=== PATIENT | male | born 1945 | race Caucasian/White ===

== ENCOUNTER → 2017-02-06 | Outpatient (CLI) | payer OTHER, MEDICARE | LOC: FIMAGING 10:09 | PROVIDERS: ATTEND Internal Medicine Interventional Cardiology | DX: I65.23 Occlusion and stenosis of bilateral carotid arteries (principal); I25.10 Atherosclerotic heart disease of native coronary artery without angina pectoris ==

== ENCOUNTER 2018-03-23 07:15 | Observation (INO) | payer OTHER, MEDICARE ==
[2018-03-23] MEDS ORDERED: BACITRACIN IRRIGATION/NS 50,000 UNITS/1,000 ML BTL IRR ONE (07:17)
[2018-03-23] MEDS ORDERED: NS 1,000 ML IV ONE (07:17)
[2018-03-23] MEDS ORDERED: ceFAZolin 2 GM/SWFI 2 GM/20 ML SYR IVP ONE (07:17)
[2018-03-23] MEDS ORDERED: diphenhydrAMINE 25 MG CAP PO ONE (07:17)
--- NOTE | 2018-03-23 07:41 | CPEKG ---
Heart Rate: 85 RR Interval: 706 P-R Interval: 240 QRSD Interval: 144 QT Interval: 428 QTC Interval: 509 P Phoenix: 30 QRS Phoenix: 8 T Wave Phoenix: -2 EKG Severity - ABNORMAL ECG - EKG Impression: SINUS RHYTHM EKG Impression: FIRST DEGREE AV BLOCK EKG Impression: query right ventricular hypertrophy EKG Impression: RIGHT BUNDLE BRANCH BLOCK Electronically Signed By: Michael Muniz 23-Mar-2018 09:43:09
[2018-03-23] MEDS ORDERED: LIDOCAINE 1% 300 MG/30 ML SDV ONE (08:06)
[2018-03-23] MEDS ORDERED: HEPARIN 10,000 UNIT/10 ML MDV (1,000 UNIT/ML) ONE (08:06)
[2018-03-23] MEDS ORDERED: BUPIVACAINE 0.5% 30 ML SDV ONE (08:06)
[2018-03-23 08:07] LABS: PLATELET COUNT 220 10^3/uL (150-400)
[2018-03-23] MEDS ORDERED: ISOPROTERENOL HCL/D5W 0.2 MG/50 ML BAG IV ONE (08:07)
[2018-03-23 08:11] LABS: INR 0.93 (0.83-1.16); PROTIME(PATIENT) 12.7 SEC (12.0-15.0)
--- NOTE | 2018-03-23 08:22 | PDGENHP ---
History & Physical Chief Complaint: fatigue History of Present Illness: AFF Relevant Physical Exam: s1s2 irreg. cta. ao3 Cardiorespiratory Assessment: AFL with V pauses. Fatigue. For AFL ablation. Possible pacemaker if slow AV conduction post ablation
[2018-03-23] MEDS ORDERED: MIDAZOLAM 2 MG/2 ML VIAL IVP ONE (08:32)
--- NOTE | 2018-03-23 08:33 | PDANEPAE ---
ANE History of Present Illness a fib, cad, s/p cabg ANE Past Medical History - Cardiovascular History Hx Hypertension: Yes Hx Arrhythmias: Yes Hx Coronary Artery / Peripheral Vascular Disease: Yes - Pulmonary History Hx Oxygen in Use at Home: Yes Hx Sleep Apnea: Yes - Endocrine History Hx Diabetes: No - Chronic Pain History Chronic Pain: Yes ANE Review of Systems Review of Systems: ANE Patient History - Allergies Allergies/Adverse Reactions: No Known Allergies Allergy (Unverified 10/17/15 08:51) - Home Medications Home Medications: Aspirin [Aspirin 81mg (*)] 81 mg PO HS 10/17/15 [Last Taken Unknown] Latanoprost 0.005% [Xalatan 0.005% (*)] 1 drop OP HS 10/17/15 [Last Taken Unknown] Lisinopril [Zestril 40 mg (*)] 40 mg PO DAILY 10/17/15 [Last Taken Unknown] Nebivolol HCl [Bystolic 5 mg (*)] 2.5 mg PO DAILY 10/17/15 [Last Taken Unknown] amLODIPine BESYLATE [Norvasc 5 mg (*)] 5 mg PO DAILY 10/17/15 [Last Taken Unknown] Acetaminophen [Tylenol 325mg (*)] 325 mg PO DAILY PRN 03/16/18 [Last Taken Unknown] Apixaban [Eliquis] 5 mg PO BID 03/16/18 [Last Taken Unknown] Herbals/Supplements -Info Only 1 ea PO DAILY 03/16/18 [Last Taken Unknown] Multivitamins [Multivitamin (*)] 1 each PO DAILY 03/16/18 [Last Taken Unknown] [place]-3 Fatty Acids [Fish Oil 1000 mg (*)] 2,000 mg PO DAILY 03/16/18 [Last Taken Unknown] Rosuvastatin Calcium [Crestor 40mg (*)] 40 mg PO DAILY 03/16/18 [Last Taken Unknown] - Smoking Hx Smoking Status: Former smoker ANE Labs/Vital Signs - Labs Result Diagrams: 03/23/18 07:40 03/23/18 07:40 - Vital Signs Height: 175.26 cm Weight: 102.058 kg ANE Physical Exam - Airway Neck exam: FROM Mallampati Score: Class 3 Mouth exam: poor dentition, dentures - Pulmonary Pulmonary: no respiratory distress - Cardiovascular Cardiovascular: irregularly irregular - ASA Status ASA Status: III ANE Anesthesia Plan Anesthesia Plan: general endotracheal anesthesia
[2018-03-23] MEDS ORDERED: fentaNYL 100 MCG/2 ML INJ ONE ×2 (08:36→08:37)
[2018-03-23] MEDS ORDERED: PHENYLEPHRINE HCL 100 MCG/ML SYR ONE (08:36)
[2018-03-23] MEDS ORDERED: ROCURONIUM 100 MG/10 ML VIAL ONE (08:36)
[2018-03-23] MEDS ORDERED: PROPOFOL 200 MG/20 ML VIAL ONE ×2 (08:37→09:50)
[2018-03-23] MEDS ORDERED: HEPARIN/DEXTROSE 25,000 UNIT/500 ML BAG ONE (09:47)
[2018-03-23] MEDS ORDERED: PHENYLEPHRINE HCL 50 MG in NS 250 ML IV SCH (10:00)
--- NOTE | 2018-03-23 10:59 | EPPROC ---
Electrophysiology Procedure Note: ELECTROPHYSIOLOGIC STUDY AND CATHETER MEDIATED ABLATION FOR SUBEUSTACHIAN ISTHMUS DEPENDENT COUNTERCLOCKWISE ATRIAL FLUTTER: INDICATION: Recurrent atrial flutter Prior CABG Symptomatic with atrial flutter. Unable to use antiarrhythmics due to 3.6 s pauses on monitoring. PROCEDURES PERFORMED: 71823-18 EP evaluation with RA/RV/LA pace/record, with arrhythmia induction 53306-91 EP evaluation with RA/RV pace record, insert/reposition catheter, with arrhythmia induction 97219 SVT ablation 51205 3D mapping Fluoroscopy Catheters & Anesthesia: The patient arrived in the Electrophysiology Laboratory in the fasting state. The right clavicular region, right groin, and left groin area were prepped and draped in the usual sterile manner. Anesthesiologist Dr. Tony Ortiz administered general anesthesia. Appropriate non-invasive blood pressure, pulse oximetry and end-tidal CO2 monitoring was established. All catheters were placed percutaneously using the modified Seldinger technique , and advanced into position under fluoroscopic guidance. One #7 [place]i deflectable octapolar electrode catheter was advanced to the His-bundle position via the left femoral vein (2mm spacing; except the proximal ring which was 25cm from the tip used for unipolar recordings). One #7 [place]i deflectable catheter with 10 pairs of electrodes was placed via the left femoral vein into the coronary sinus. One # 7 [place]i Halo catheter was inserted through the right femoral vein and was placed at the tricuspid annulus. Heparin was administered to keep ACT > 250 seconds. Programmed stimulation was performed from the right atrium, coronary sinus ( left atrium) and right ventricle. On arrival to the Electrophysiology Laboratory the patient was in atrial flutter , CL 240 ms. Entrainment mapping from lateral TA, septal TA, proximal CS and distal CS confirmed cavotricuspid isthmus dependent atrial flutter. In preparation for ablation of typical atrial flutter, a high-resolution 3D (3 dimensional) Carto electroanatomical map of the sub-Eustachian isthmus and right atrium was obtained during pacing of the posterolateral coronary sinus. For ablation of typical atrial flutter, one #8.5 [place]i ramp1 sheath was placed in the right atrium. A #8 [place]raini deflectable quadrapolar electrode catheter ( 2mm-5mm-2mm spacing) with 3.5 mm irrigated tip electrode and location sensor for the OneName mapping system was inserted in the long sheath and advanced to the right atrium. Radiofrequency applications were applied between the tricuspid annulus at 0630 oclock as seen in the BRITISH view and the inferior vena cava. This achieved conduction block across the isthmus. Septal to lateral conduction time 220 ms. Following ablation of the atrial flutter, programmed atrial stimulation was performed in the baseline state. No atrial arrhythmias were inducible post ablation. Post ablation, a high-resolution electroanatomical map of the sub-Eustachian isthmus was obtained during pacing of the posterolateral coronary sinus. This confirmed conduction block across the sub-Eustachian isthmus. Bidirectional block was also confirmed by pacing. The catheters were removed. Sheaths were removed in the EP lab after applying subcutaneous purse string suture. The patient was transferred to the cardiovascular holding area in stable condition. There were no apparent complications. Post ablation: SCL 1017 ms AH 150 ms HV 60 ms (RBBB) AV WBB @ 640 ms We decided not to place pacemaker at this time. Patient will be monitored for 4 weeks post ablation and if pauses seen, will move forward with pacemaker at that time. CONCLUSIONS: 1. 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 2. Successful catheter mediated ablation of cavotricuspid isthmus achieving bi -directional conduction block across cavotricuspid isthmus. 3. No atrial arrhythmias inducible post ablation. 4. Infrahisian conduction system disease with RBBB and HV interval 60 ms, AV nancy WBB at 640 ms. 5. No apparent complications. Patient Problems: Problems Problem Status Onset Atrial flutter Acute
[2018-03-23] MEDS ORDERED: ACETAMINOPHEN 325 MG TAB PO PRN (11:00)
[2018-03-23] MEDS ORDERED: NALOXONE HCL 0.4 MG/ML INJ IVP PRN (11:11)
--- NOTE | 2018-03-23 11:11 | POSTANESTH ---
Post Anesthetic Evaluation Cardiovascular Status: Normal, Stable Respiratory Status: Normal, Stable Level of Consciousness/Mental Status: Can Participate in Eval Pain Control: Adequate, Prn Tx Ordered Nausea/Vomiting Control: Adequate, Prn Tx Ordered Complications Possibly Related to Anesthesia: None Noted
--- NOTE | 2018-03-23 12:01 | CPEKG ---
Heart Rate: 71 RR Interval: 845 P-R Interval: 296 QRSD Interval: 142 QT Interval: 468 QTC Interval: 509 P Adams: 53 QRS Adams: 32 T Wave Adams: 24 EKG Severity - ABNORMAL ECG - EKG Impression: SINUS RHYTHM EKG Impression: FIRST DEGREE AV BLOCK EKG Impression: RIGHT BUNDLE BRANCH BLOCK EKG Impression: BORDERLINE INFERIOR Q WAVES Electronically Signed By: Bro Weeks 23-Mar-2018 12:50:50
[2018-03-23] MEDS ORDERED: LATANOPROST 0.005% 2.5 ML OPHT DROPS OP SCH (21:00)
[2018-03-23] MEDS ORDERED: ASPIRIN 81 MG CHEWABLE TAB PO SCH (21:00)
[2018-03-23] MEDS: APIXABAN 5 MG TAB PO SCH (21:07)
[2018-03-24] MEDS ORDERED: OXYMETAZOLINE 30 ML NASAL SPRAY EACHNARE PRN (04:45)
[2018-03-24 05:00] LABS: PLATELET COUNT 213 10^3/uL (150-400)
[2018-03-24 08:19] VITALS: BP 122/67
--- NOTE | 2018-03-24 08:47 | CPEKG ---
Heart Rate: 77 RR Interval: 779 P-R Interval: 268 QRSD Interval: 140 QT Interval: 436 QTC Interval: 494 P Ellinger: 64 QRS Ellinger: 8 T Wave Ellinger: 15 EKG Severity - ABNORMAL ECG - EKG Impression: SINUS RHYTHM EKG Impression: SUPRAVENTRICULAR BIGEMINY EKG Impression: FIRST DEGREE AV BLOCK EKG Impression: RIGHT BUNDLE BRANCH BLOCK Electronically Signed By: Bro Weeks 24-Mar-2018 16:25:39
[2018-03-24] MEDS ORDERED: CETIRIZINE 10 MG TAB PO SCH (09:00)
[2018-03-24] MEDS ORDERED: amLODIPine BESYLATE 5 MG TAB PO SCH (09:00)
[2018-03-24] MEDS ORDERED: NEBIVOLOL HCL 5 MG TAB PO SCH (09:00)
[2018-03-24] MEDS ORDERED: ROSUVASTATIN CALCIUM 40 MG TAB PO SCH (09:00)
[2018-03-24] MEDS ORDERED: MULTIVITAMINS 1 EACH TAB PO SCH (09:00)
[2018-03-24] MEDS ORDERED: LISINOPRIL 40 MG TAB PO SCH (09:00)
--- NOTE | 2018-03-24 09:14 | ECHO ---
[email or web address] [address] [address] Main: [phone] Fax: Transthoracic Echocardiogram Name: MARIALUISA SCOTT MR#: [id number] Study Date: 03/24/2018 Study Time: 05:31 AM Date of : 1945 Age: 72 year(s) Height: 175.3 cm (69 in.) Weight: 102.06 kg (225 lb.) BSA: 2.17 m2 Gender: Male Examination: Echo Indication: F/U POST EP STUDY Image Quality: Contrast: Requested by: Bro Weeks BP: 132 mmHg/78 mmHg Heart Rate: Rhythm: Indication: F/U POST EP STUDY Procedure Staff Leaf Conditioner Helper: Elena De La Fuente RDCS Reading Physician: Bro Weeks MD Requesting Provider: Conclusions: Normal global systolic LV function. EF is 55 %. Mild to moderate mitral regurgitation. Aortic sclerosis is present. Mild tricuspid regurgitation is present. Right ventricular systolic pressure measures 41mmHg. The pulmonary artery pressure is mildly increased. Measurements: Chambers Valvular Assessment AV/MV Valvular Assessment TV/PV Normal Normal Normal Name Value Range Name Value Range Name Value Range Ao Estephanie (2D): 3.0 cm (1.4 cm-2.6 AV meanP mmHg ( - ) TR Vmax: 3.01 mm/s ( - ) cm) ALEKSANDER (VTI): 2.1 cm ( - ) TR PGmax: 36 mmHg ( - ) IVSd (2D): 1.1 cm (0.6 cm-1.1 MV E Vmax: 0.96 m/s ( - ) syst. PAP: 41 mmHg ( - ) cm) MV A Vmax: 0.74 m/s ( - ) PV Vmax: 1.13 m/s (0.6 m/s-0.9 LVDd (2D): 5.8 cm (4.2 cm-5.9 MV E/A: 1.30 ( - ) m/s) cm) MV PHT: 0.045 s ( - ) PV PGmax: 5 mmHg ( - ) LVDs (2D): 4.0 cm (2.1 cm-4 cm) MVA (PHT): 4.9 s ( - ) LVPWd (2D): 1.1 cm (0.6 cm-1 cm) LVOTd 2.2 cm 2.2 cm mm LVEF (BP): 55 % (>=55 %) RVDd(2D): 4.0 cm (1.9 cm-3.8 cmmm) Continued Measurements: Chambers Valvular Assessment AV/MV Valvular Assessment TV/PV Patient: MARIALUISA SCOTT Study Date: 03/24/2018 Page 1 of 2 05:31 AM Name Value Name Value Name Value LADs: 5.1 cm MV DecTime: 162 m/s CVP (est.): 5 mmHg LADs Lon.4 cm MV E' Septal: 0.07 m/s LA Area: 26.1 cm2 MV E/E' Septal: 13.40 LA Volume: 82 ml MV E/E' Lateral: 9.00 LA Volume Index: 37.8 ml/m2 MR ERO: 0.410 cm2 RA Area: 19.3 cm2 MR PISA radius: 9 mm MR Reg. Volume: 61 ml Additional Vessels Name Value Ao Ascendin.0 cm Inferior Vena Cava: 1.4 cm Findings: Left Ventricle: Normal size left ventricle. No LV hypertrophy. Normal global systolic LV function. EF is 55 %. No regional wall motion abnormality. Normal diastolic LV function. Right Ventricle: Normal size right ventricle. Normal RV function. Left Atrium: Left atrial enlargement. Right Atrium: The right atrium is normal in size. Mitral Valve: The mitral valve is normal in appearance and function. Mild to moderate mitral regurgitation. No mitral stenosis is present. Aortic Valve: The aortic valve is normal in appearance and function. Aortic sclerosis is present. There is no significant aortic valve regurgitation. No aortic valve stenosis is present. Tricuspid Valve: The tricuspid valve is normal in appearance and function. Mild tricuspid regurgitation is present. Right ventricular systolic pressure measures 41mmHg. The pulmonary artery pressure is mildly increased. Pulmonic Valve: The pulmonic valve is normal in appearance and function. Trivial pulmonic valve regurgitation. Aorta: The aorta is normal. Normal size aortic root measuring 3.0 cm. Normal size ascending aorta measuring 3.0 cm. IVC: The IVC is normal sized. Pericardium: No pericardial effusion. No pleural effusion. (No Signature Object) Patient: MARIALUISA SCOTT Study Date: 03/24/2018 Page 2 of 2 05:31 AM [id number]
[2018-03-24] MEDS: APIXABAN 5 MG TAB PO SCH (09:18)
--- NOTE | 2018-03-24 12:57 | GDS ---
[f rep st] DISCHARGE SUMMARY ADMISSION DIAGNOSIS: 1. Atrial flutter. 2. Coronary artery disease. 3. Hyperlipidemia. 4. Hypertension. 5. Obstructive sleep apnea. 6. Pulmonary artery hypertension. DISCHARGE DIAGNOSIS: 1. Atrial flutter. 2. Status post atrial flutter ablation. 3. Coronary artery disease. 4. Hyperlipidemia. 5. Hypertension. 6. Obstructive sleep apnea. 7. Pulmonary hypertension. 8. Sinusitis. 9. Bifascicular block. PROCEDURES PERFORMED DURING HOSPITALIZATION: 1. Electrocardiogram. 2. Electrophysiology study. 3. Successful catheter mediated ablation of cavotricuspid isthmus achieving bidirectional conduction block across the cavotricuspid isthmus. 4. Echocardiogram. BRIEF HISTORY: Please see H and P. Briefly, Mr. Mcmillan is a 72-year-old male whose primary cardiol ogist is Dr. Jay Matias. Patient has been noted he has a significant past history of CAD, hyperlipid emia and hypertension. He was found recently to be in atrial flutter with variable ventricular respo nse. It was noted when in flutter he was having ventricular pauses up to 3.6 seconds. He has had no syncope. He does report fatigue when in flutter. He met with Dr. Weeks, and it was felt the best way to proceed was to undergo electrophysiology study with ablation. HOSPITAL COURSE: Patient admitted through CVC, prepped for procedure, and taken to the cardiac jolie terization lift where Dr. Weeks performed electrophysiology study on patient, identifying cavotricuspid isthmus dependent counterclockwise atrial flutter. At that point, he ablated it and was not able to produce any arrhythmias post ablation. No complications. Patient was taken back to the CVC, and ul timately to the PCU for overnight observation. Throughout the night, patient has made remained in si nus rhythm, no other malignant arrhythmias or pauses noted. He denies any palpitations. He did deve lop a pressure in his forehead with a runny nose post procedure, feeling as he had sinusitis in the p ast. He was given Afrin nasal spray, and was started on Zyrtec, reporting relief of symptoms. He batista s been up and walking the unit today without any chest pain or shortness of breath. Reporting no lig htheadedness. PHYSICAL EXAMINATION: GENERAL APPEARANCE: Medium built, moderately obese, male. He is al ert and oriented to person, place, time, and situation. Appears to be under no acute distress. WARNER L SIGNS: Current vital signs are 122/67, heart rate of 78, respirations 18, saturating 94% on room a ir. Temperature 37.1 degrees Celsius. HEENT: Head is normocephalic. Lips and tongue are pink and moist with no signs of cyanosis. Conjunctivae pink. NECK: Trachea is midline, +2 carotid pulses bi lateral. No auscultated bruits, no jugular vein distention. RESPIRATORY: Lungs clear to auscultati on. No rhonchi, rales or wheezes, no accessory muscle use, no intercostal muscle retraction noted. CARDIAC: Regular rate, regular rhythm, S1, S2. 2/6 systolic murmur noted along the left sternal bord er. No rubs or gallops noted. ABDOMEN: Soft, nontender, bowel sounds x4 quadrants, no organomegaly, no palpable masses. SKIN: [place], warm, dry, no cyanosis, no clubbing, trace pedal edema bilateral l ower extremity. VASCULAR: +2 carotids bilateral, +2 radials bilateral, +2 dorsal pedal and posterio r tibial pulses bilateral. GROIN SITE: Catheter insertion site, bilateral groin sites, with no redne ss, swelling, drainage, ecchymosis, or hematoma. No auscultated bruit noted over either site. LABORATORY STUDIES: Laboratory studies drawn today show WBC of 13.87, hemoglobin of 13.5, hematocrit of 41.5, platelet count of 213, sodium 144, potassium 5.2, chloride 107, CO2 26, BUN 16, creatinine 0.9, glucose 120, calcium 9.1, magnesium 2.2. Troponin of 0.226. Note expected elevated troponin lev el after ablation procedure. STUDIES: Electrophysiology and ablation procedure as mentioned above. Echocardiogram today showing normal LV systolic function with no wall motion abnormalities. EF of 55%. [id number] MR, aort ic sclerosis is noted, mild TR, RVSP mildly elevated at 41 mmHg, no pericardial effusion. Electrocardiogram done today showing sinus rhythm, right bundle branch block, 1st degree AV block (bi fascicular block), with premature atrial contraction. DISCHARGE DISPOSITION: Patient will be discharged home in stable condition. He is under activity re strictions of no strenuous activities for the next 2 weeks, not to lift more than 10 pounds for the n ext week. DISCHARGE MEDICATIONS: Please see discharge medication reconciliation sheet, patient has resumed all home medications including Eliquis. He has also to been started on Zyrtec OTC. DISCHARGE INSTRUCTIONS: Post atrial flutter ablation discharge instructions went over with the patie nt and his including monitoring for signs of infection, bleeding precaution, activity restrictio ns, and medication compliancy. The patient has been encouraged to continue using Zyrtec as needed, a nd encouraged saline flushes. If no improvement with sinusitis in a week, he is encouraged to follow up with PCP. Due to patient's noted bifascicular block with previous pauses off Holter monitoring w hen he was in atrial flutter, Dr. Weeks has ordered the patient to undergo 2 week monitoring, which I h ave set up with our office, and the [employer] monitor will be sent to his home. The patient has a eric mejia appointment with Dr. Weeks on 04/08. At the time of discharge, patient and both verbalize d understanding of all instructions and have no questions or concerns. The patient has been told anel t if any problems or concerns post discharge, they are to notify our office or return to the hospital for further evaluation. TIME SPENT: Total time spent on discharge, greater than 30 minutes. /[id number]/MODL
== END 2018-03-24 11:22 | disposition home or self-care (01) ==
LOC: FCATH 07:15 → F2W 10:59
PROVIDERS: ADMIT Internal Medicine Cardiovascular Disease; ATTEND Internal Medicine Cardiovascular Disease
DX: I48.92 Unspecified atrial flutter (principal); I25.10 Atherosclerotic heart disease of native coronary artery without angina pectoris; Z95.1 Presence of aortocoronary bypass graft; E78.5 Hyperlipidemia, unspecified; I10 Essential (primary) hypertension; G47.33 Obstructive sleep apnea (adult) (pediatric); I27.21 Secondary pulmonary arterial hypertension
CPT/HCPCS: 93005; 93306; 93312; 93613; 93621; 93653; C1731; C1732; C1766; J1644; J2250; J2370; J2704; J3010; J0690

== ENCOUNTER → 2018-04-08 | Outpatient (CLI) | payer OTHER, MEDICARE ==
[~2018-04-08] MED LIST: IOPAMIDOL (ISOVUE-300) 100 ML BTL ONE
== END ==
LOC: FIMAGING 14:33
PROVIDERS: ATTEND Internal Medicine Cardiovascular Disease
DX: R51 Headache (principal); I48.91 Unspecified atrial fibrillation; Z79.01 Long term (current) use of anticoagulants
CPT/HCPCS: 70470; Q9967